=== PATIENT | male | born 1985 | race Hispanic/Latino ===

== ENCOUNTER 2022-05-22 22:57 | Emergency (ER) | payer OTHER | END 2022-05-22 23:54 | LOC: NAV ERS 22:57 | DX: G40.909 Epilepsy, unspecified, not intractable, without status epilepticus (principal); S00.03XA Contusion of scalp, initial encounter; E78.5 Hyperlipidemia, unspecified; E11.9 Type 2 diabetes mellitus without complications; I10 Essential (primary) hypertension; Z79.4 Long term (current) use of insulin; Z79.899 Other long term (current) drug therapy; W17.89XA Other fall from one level to another, initial encounter | CPT/HCPCS: 99284 ==